=== PATIENT | female | born 1945 | race Caucasian/White ===

== ENCOUNTER 2017-08-03 09:23 | Day surgery (SDC) | payer OTHER ==
[2017-07-31 15:08] LABS: Absolute Lymphocytes (CBC) 1.5 K/uL (0.7-4.9); Absolute Monocytes 0.4 K/uL (0.1-1.3); Absolute Neutrophil 3.9 K/uL (1.8-8.0); Eosinophils % 1.4 % (0-4.4); Hematocrit 44.2 % (36.0-45.0); Lymphocytes % 25.3 % (15.3-44.8); MCV 89.3 fL (80-100); Monocytes % 6.8 % (3.3-12.3); RBC Red Blood Cell Count 4.95 M/uL (3.86-4.86)
[2017-08-03] MEDS ORDERED: Ringers Lactate 1,000 ML IV ONE (09:47)
[2017-08-03] MEDS ORDERED: LIDOCAINE 1% W/EPI 1:100,000 MDV 50 ML VIAL ONE (11:05)
[2017-08-03] MEDS ORDERED: LIDOCAINE 2% MPF 5 ML VIAL ONE (11:34)
[2017-08-03] MEDS ORDERED: MIDAZOLAM HCL 2 MG/2 ML INJ ONE (11:34)
[2017-08-03] MEDS ORDERED: FENTANYL CITR 100 MCG/2 ML ONE (11:34)
[2017-08-03] MEDS ORDERED: PROPOFOL 200 MG/20 ML VIAL IV ONE ×2 (11:34→12:02)
--- NOTE | 2017-08-03 23:59 | OP ---
Date of Procedure: 08/03/2017 Surgeon: Ann Dove MD Preoperative Diagnoses: Postmenopausal bleeding, advanced vaginal prolapse, and urinary frequency. Procedures Performed: Hysteroscopy, dilation and curettage, and cystoscopy. Anesthesia: MAC plus paracervical block. Specimens: Endometrial curettings which were very scant. Complications: No complications. Drains: No drains. Condition: Stable. Findings: Endometrial cavity empty. Lining thin. Adhesions in the cervical canal. Cysto negative. No evidence of any tumors, diverticula, stones, or ulcerations. Cystourethroscopy was performed an d normal. Indications: The patient is a 72-year-old with significant vaginal prolapse. She had complaints of vaginal bleeding, possibly postmenopausal bleeding. Since the patient had uterus, transvaginal ultra sound was performed. The endometrium was not satisfactorily visualized, and she had urinary frequenc y. Given her prolapse, wanted to make sure that cystoscopy was performed to rule out any tumors. Hy steroscopy to see if there is any intrauterine mass or cancer or atypia. She was consented for hyste roscopy and cystoscopy and brought to the hospital due to her postmenopausal status. Description Of Procedure: After informed consent was verified, she was brought to the OR and placed in a supine fashion on the operating table. MAC was given. She was placed in a dorsal lithotomy pos ition. Pelvic examination was performed. The POP-Q for this patient is as follows. Her point AA wa s 0, BA was +3, and point C was 0. Her genital hiatus was 5 cm, total vaginal length 7 cm, perineal body moderate, posterior AP -2, BP -2, and point D -1. The cervix on the anterior lip was injected w ith 1% lidocaine mixed with 1:100,000 epinephrine. Allis clamp was placed on the anterior lip, and h ysteroscopy was performed after a paracervical block was given at 4 o'clock and 8 o'clock positions o f the cervicovaginal junction with the same 5 cc each. Then, on the hysteroscopy, the cervical canal was traversed. There were adhesions that were taken down as the tip of the scope was passed. After entering the uterine cavity, there were no intracavitary lesions or masses. The endometrium appeare d to be unremarkable. The scope was pulled out. Endometrium was curetted. There was a scant specim en for curettings. However, this was handed out for permanent pathology. After the Allis was removed, cystoscopy was performed with a 30-degree lens and normal saline for dis tention medium. The entire bladder was visualized after filling to 300 cc. Both ureteric orifices w ere normal, with normal jets of urine. Trigone, area above the trigone, dome of the bladder, and bot h lateral barrett were well visualized. No evidence of any tumor, diverticula, or stones. No ulcerati ons. Urethroscopy was performed on the way out, and no evidence of any tumors or diverticula. The p gloria's bladder was drained. She was recovered from anesthesia and taken to PACU in stable conditio n. She will follow up with me in 1 week. GREGORY Voice ID: [id number] Report ID: [id number]
== END 2017-08-03 13:21 | disposition home or self-care (01) ==
LOC: OR 09:23
PROVIDERS: ATTEND Obstetrics & Gynecology
PROC: 0UJD8ZZ Inspection of Uterus and Cervix, Via Natural or Artificial Opening Endoscopic (ICD-10-PCS; 2017-08-03)
PROC: 0TJB8ZZ Inspection of Bladder, Via Natural or Artificial Opening Endoscopic (ICD-10-PCS; 2017-08-03)
PROC: 0UDB7ZX Extraction of Endometrium, Via Natural or Artificial Opening, Diagnostic (ICD-10-PCS; principal; 2017-08-03 10:30)
DX: N95.0 Postmenopausal bleeding (principal); N81.12 Cystocele, lateral; R35.0 Frequency of micturition; E78.00 Pure hypercholesterolemia, unspecified; Z80.3 Family history of malignant neoplasm of breast; Z80.0 Family history of malignant neoplasm of digestive organs; Z80.8 Family history of malignant neoplasm of other organs or systems; Z82.3 Family history of stroke; Z82.49 Family history of ischemic heart disease and other diseases of the circulatory system
CPT/HCPCS: 36415; 52000; 58558; 85025; 88305; J2250; J3010

== ENCOUNTER 2018-06-07 08:56 | Day surgery (SDC) | payer OTHER ==
--- NOTE | 2018-06-06 16:16 | RAD REPORT ---
EXAM DESCRIPTION: RAD - Chest Pa And Lat (2 Views) - 06/06/2018 4:08 pm CLINICAL HISTORY: preop Chest pain. COMPARISON: Chest Pa And Lat (2 Views) dated 09/27/2016; Small Bowel Series dated 12/06/2016 FINDINGS: There is elevation of the left hemidiaphragmatic leaflet with prominent diaphragmatic echo ia suspected. This results in opacification of the inferior left hemithorax, similar prior studies. T he heart is normal in size. No displaced fractures. 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 CT chest followup imaging could be obtained if further characterization is cli nically desired.
[2018-06-06 16:25] LABS: Absolute Lymphocytes (CBC) 1.7 K/uL (0.7-4.9); Absolute Monocytes 0.4 K/uL (0.1-1.3); Absolute Neutrophil 3.5 K/uL (1.8-8.0); Basophils % 0.8 % (0-1.3); Eosinophils % 2.6 % (0-4.4); Hematocrit 45.6 % (36.0-45.0); Lymphocytes % 29.2 % (15.3-44.8); MPV 7.1 fL (7.6-11.3); Monocytes % 6.5 % (3.3-12.3); RBC Red Blood Cell Count 5.06 M/uL (3.86-4.86)
[2018-06-06 16:47] LABS: Potassium 4.4 mmol/L (3.5-5.1)
[2018-06-06 16:52] LABS: ALT/SGPT 21 U/L (12-78); AST/SGOT 17 U/L (15-37); Albumin 4.1 g/dL (3.4-5.0); Alkaline Phosphatase 63 U/L (45-117); Amylase Level 51 U/L (25-115); Bilirubin Direct < 0.1 mg/dL (0-0.2); Bilirubin Total 0.2 mg/dL (0.2-1.0); Protein, Total 7.9 g/dL (6.4-8.2)
--- NOTE | 2018-06-07 07:02 | EKG ---
Test Date: 2018-06-06 Test Time: 15:58:38 Tension Machine Operator: MIYA MEASUREMENT RESULTS: Intervals: Rate: 65 IA: 158 QRSD: 86 QT: 402 QTc: 418 [place]: P: 47 IA: 158 QRS: 29 T: 33 INTERPRETIVE STATEMENTS: Normal sinus rhythm Normal ECG Compared to ECG 09/22/2005 13:39:00 No significant changes Electronically Signed On 06-07-18 07:02:08 ENVIRONMENTAL ATTORNEY by Young Rios
[2018-06-07] MEDS ORDERED: Ringers Lactate 1,000 ML IV ONE ×2 (09:13→11:47)
[2018-06-07] MEDS ORDERED: CEFOXITIN/SWI 1gm 1 GM/10 ML SYR ONE (09:14)
[2018-06-07] MEDS: BUPIVACAINE 0.5% PF 10 ML VIAL ONE ×2 (09:50→11:14)
[2018-06-07] MEDS ORDERED: LIDOCAINE 2% MPF 5 ML VIAL ONE (10:54)
[2018-06-07] MEDS ORDERED: FENTANYL CITR 100 MCG/2 ML ONE (10:54)
[2018-06-07] MEDS ORDERED: ROCURONIUM 50 MG/5 ML VIAL IV ONE (10:54)
[2018-06-07] MEDS ORDERED: PROPOFOL 200 MG/20 ML VIAL IV ONE (10:54)
[2018-06-07] MEDS ORDERED: NS 0.9% VIAL 10 ML ONE (11:19)
[2018-06-07] MEDS ORDERED: DEXAMETHASONE 4 MG/ML VIAL ONE (11:27)
[2018-06-07] MEDS ORDERED: ONDANSETRON 4 MG/2 ML VIAL ONE (11:27)
[2018-06-07] MEDS ORDERED: GLYCOPYRROLATE 0.2 MG/ML SYR ONE (11:51)
[2018-06-07] MEDS ORDERED: NEOSTIGMINE 1 MG/ML -10 ML VIAL ONE (11:51)
[2018-06-07] MEDS: MEPERIDINE HCL 50 MG/ML AMP ONE ×3 (12:04→12:19)
[2018-06-07] MEDS ORDERED: HYDROCODONE/APAP 7.5/325 MG TAB ONE (13:39)
--- NOTE | 2018-06-07 23:21 | OP ---
Date of Procedure: 06/07/2018 Surgeon: Nikolay Voss MD Preoperative Diagnosis: Symptomatic cholelithiasis. Postoperative Diagnosis: Symptomatic cholelithiasis. Procedure: Laparoscopic cholecystectomy. Estimated Blood Loss: Minimal. Specimen: Gallbladder. Findings: As above. Anesthesia: General. Complications: None. Disposition: The patient tolerated the procedure in stable condition and was taken to recovery in go od general condition. Procedure In Detail: The patient was brought to the OR and placed in supine position. General anest hesia was begun. The patient was prepped and draped in usual sterile fashion. Marcaine 0.5% was inf iltrated locally. A 15-blade was used to make a 1 cm supraumbilical midline incision. Subcutaneous tissue was divided. The fascia was identified and divided. A #1 Vicryl stay suture was placed. Per itoneal cavity was entered with blunt dissection. A 12-mm trocar was placed into the peritoneal cavi ty under direct vision. Pneumoperitoneum was established. Then, three 5 mm trocars placed, 1 in the epigastrium just to the right of midline and 2 in the right subcostal region. Laparoscopy revealed chronic inflammation of the gallbladder with minimal omental adhesions to the body and infundibulum. Fundus retracted superiorly. Adhesions were taken down with sharp and blunt dissection. Bleeding c ontrolled with cautery. The infundibulum was identified and retracted inferolaterally. Cystic duct and cystic artery were clearly identified with blunt dissection. Clips placed. Both structures were divided. Cautery was used to remove the gallbladder from the liver bed. Bleeding was controlled wi th cautery. The gallbladder was retrieved through the umbilicus via an EndoCatch bag. Right upper q uadrant was irrigated. Effluent was clear. No evidence of bleeding or bile leakage appreciated. [place] bsequently, all trocars were removed under direct vision. Stay sutures were tied to each other acros s the fascial defect. Subcutaneous wounds were irrigated. Bleeding was controlled with cautery. A 3-0 Chromic used to approximate subcutaneous tissue and shima used to close the skin. Sterile dres sing was applied. The patient was awakened and taken to recovery in good general condition. Discharge Note: The patient will go to Day Surgery and home when stable. Disposition: Home. Condition: Stable. Discharge Instructions: Resume home medications and diet. Activity as tolerated. No heavy lifting. Remove outer dressing in 2 days. Shower. Keep wound clean and dry. Follow up in my office in 1 w [place]. Call for appointment. Tylenol No. 3, one tablet p.o. q.4 hours p.r.n. pain. /MODL Voice ID: [id number] Report ID: [id number]
== END 2018-06-07 14:22 | disposition home or self-care (01) ==
LOC: OR 08:56
PROVIDERS: ATTEND Surgery
PROC: 0FT44ZZ Resection of Gallbladder, Percutaneous Endoscopic Approach (ICD-10-PCS; principal; 2018-06-07 10:30)
DX: K80.10 Calculus of gallbladder with chronic cholecystitis without obstruction (principal); K66.0 Peritoneal adhesions (postprocedural) (postinfection)
CPT/HCPCS: 36415; 47562; 71046; 80048; 80076; 82150; 85025; 88304; 93005; J2175; J2405; J2704; J2710; J3010